=== PATIENT | female | born 1940 | race Caucasian/White ===

== ENCOUNTER 2016-07-13 09:58 | Day surgery (SDC) | payer MEDICARE, OTHER ==
[~2016-07-13 09:58] MED LIST: FENTANYL 250 MCG/5 ML AMP IV PRN; LACTATED RINGERS 1,000 ML IV SCH; LIDOCAINE Viscous 2% 15 ML UDCUP PO PRN; MIDAZOLAM HCL 5 MG/5 ML VIAL IV PRN
[2016-07-13] MEDS ORDERED: LACTATED RINGERS 1,000 ML ONE (10:05)
[2016-07-13] MEDS ORDERED: IV START KIT ONE (10:05)
[2016-07-13] MEDS ORDERED: LIDOCAINE Viscous 2% 15 ML UDCUP ONE (11:49)
[2016-07-13] MEDS ORDERED: FENTANYL 100 MCG/2 ML VIAL ONE (11:49)
[2016-07-13] MEDS ORDERED: MIDAZOLAM HCL 5 MG/5 ML VIAL ONE (11:49)
[2016-07-13 17:44] LABS: HELICOBACTER PYLORII DETECTION NEGATIVE (NEGATIVE)
--- NOTE | 2016-07-17 13:48 | SURGPATH ---
[facility] [address] [place] [id number] Patient Name: HEATHER BUTTS MR#: [id number] : 1940 Gender: F Specimen #: [id number] Collected: 07/13/2016 Received: 07/15/2016 Reported: 07/17/2016 Submitting Phys: ALIDA RIVERS Copy To Phys: [facility], PAGE B Amended Report Reason: PATHOLOGIST UPDATE Comment: Text added to microscopic description. Original Text will be in double brackets [[ ]] NEW TEXT WILL BE IN BOLD PRINT Clinical History / Pre-Operative Diagnosis: DYSPHAGIA; HEARTBURN; RULE OUT GASTRITIS AND ESOPHAGITIS Specimen Source / Surgical Procedure Performed: #1-ANTRAL BIOPSY; #2-ESOPHAGEAL BIOPSY Interpretation: 1. ANTRAL BIOPSY: - MILD CHRONIC ANTRAL GASTRITIS. - NO HELICOBACTER ORGANISMS IDENTIFIED BY IMMUNOHISTOCHEMISTRY. 2. ESOPHAGEAL BIOPSY AT 34 CM: - MILD ESOPHAGITIS AND REACTIVE MUCOSAL CHANGES, SUGGESTIVE OF REFLUX. Electronically Signed Out Lashonda Yee M.D. Gross Description: #1 The specimen is received in a formalin filled container labeled with the patient's name and "antral biopsy". Two ruffin-anderson biopsies are 0.3 and 0.5 cm. Totally embedded in cassette #1. #2 The specimen is received in a formalin filled container labeled with the patient's name and "esophageal biopsy at 34 cm". Two ruffin biopsies are 0.4 and 0.5 cm. Totally embedded in cassette #2. Tyrel Gutierrez Microscopic Description: 1. Sections of the antral biopsy show mildly increased chronic inflammation of the lamina propria with associated mucosal congestion. There is no evidence of intestinal metaplasia or mucosal atrophy. No definitive Helicobacter organisms are seen on the routinely stained sections. Immunohistochemical staining for Helicobacter is...++ negative. The control material stains appropriately.++ 2. Sections of the esophageal biopsy at 34 cm show fragments of squamous and columnar lined mucosa. The squamous mucosa displays mild prominence of the basal cell layer with focal papillary elongation and areas of intraepithelial spongiosis. There are small numbers of intraepithelial inflammatory cells. Eosinophils are not appreciated. There is no evidence of intestinal metaplasia, dysplasia or malignancy. (Analyte-specific reagents (ASR) are used in many laboratory tests necessary for standard medical care and generally do not require FDA approval. This test was developed and its performance characteristics determined by [facility]. It has not been cleared or approved by the U.S. Food and Drug Administration. [facility] is certified under the Clinical Laboratory Improvement Amendments of 1988 as qualified to perform high complexity clinical laboratory testing. All controls stain as expected.) Amendments: Amended: 07/17/2016 by Lashonda Yee M.D. Previous Signout Date: 07/17/2016 1: 74602, [id number] 2: 00529 K29.50 K21.0
== END 2016-07-13 13:21 | disposition home or self-care (01) ==
LOC: SDC 09:58
PROVIDERS: ATTEND Internal Medicine Gastroenterology
PROC: 0DB68ZX Excision of Stomach, Via Natural or Artificial Opening Endoscopic, Diagnostic (ICD-10-PCS; principal; 2016-07-13)
PROC: 0D748ZZ Dilation of Esophagogastric Junction, Via Natural or Artificial Opening Endoscopic (ICD-10-PCS; 2016-07-13)
DX: K22.2 Esophageal obstruction (principal); K21.0 Gastro-esophageal reflux disease with esophagitis; K29.50 Unspecified chronic gastritis without bleeding; K29.80 Duodenitis without bleeding; R10.33 Periumbilical pain; R19.7 Diarrhea, unspecified; I10 Essential (primary) hypertension; E78.00 Pure hypercholesterolemia, unspecified; F32.9 Major depressive disorder, single episode, unspecified; Z79.82 Long term (current) use of aspirin
CPT/HCPCS: 43239; 43249; 87081; J3010; J2250; A9270; J7120